=== PATIENT | male | born 1955 | race Caucasian/White ===

== ENCOUNTER 2022-08-04 09:04 | Emergency (ER) | payer BC, MEDICAID ==
[~2022-08-04] VITALS: Ht 165.1 cm; Wt 54.4 kg
[2022-08-04 11:15] VITALS: BP 139/77
[2022-08-04] MEDS ORDERED: ACETAMINOPHEN 325MG TABLET PO ONE (11:15)
[2022-08-04] MEDS ORDERED: IBUPROFEN 400MG TABLET PO ONE (11:15)
[2022-08-04] MEDS ORDERED: SULF1TAB48 MT (12:25)
[2022-08-04] MEDS ORDERED: ACET-2708 MT (12:25)
== END 2022-08-04 12:53 | disposition short-term general hospital (02) ==
LOC: ER 09:55
DX: S93.401A Sprain of unspecified ligament of right ankle, initial encounter (principal); W18.39XA Other fall on same level, initial encounter; Y93.89 Activity, other specified; Y92.89 Other specified places as the place of occurrence of the external cause; Y99.8 Other external cause status
CPT/HCPCS: 29515; 73610; 73630; 99284